=== PATIENT | male | born 1985 ===

== ENCOUNTER 2019-03-28 08:51 | Observation (INO) ==
[2019-03-28] MEDS ORDERED: Ondansetron 4 MG/2 ML VIAL IVP ONE ×2 (08:58→15:44)
[2019-03-28] MEDS ORDERED: 0.9 % Sodium Chloride 1,000 ML IVC ONE (08:58)
[2019-03-28] MEDS ORDERED: *HR* HYDROmorphone (PF) 1 MG/ML SYRINGE IVP ONE (08:58)
[2019-03-28] MEDS ORDERED: Ketorolac 30 MG/ML VIAL IVP ONE (08:58)
[2019-03-28 09:36] LABS: Basophils # 0.1 K/mcL (0.0-0.2); Basophils % 0.7 %; Eosinophils # 0.5 K/mcL (0.0-0.6); Hematocrit 42.2 % (37.5-50.1); Hemoglobin 14.5 g/dL (12.9-16.9); Immature Granulocytes % 0.7 % (0-4); Lymphocytes # 1.4 K/mcL (0.6-4.6); Lymphocytes % 11.1 %; Mean Corpuscular HGB Conc 34.4 g/dL (31.6-35.5); Mean Corpuscular Hemoglobin 28.6 pg (28.0-33.3); Mean Corpuscular Volume 83.2 fL (83.0-100.0); Mean Platelet Volume 9.1 fL (9.4-12.4); Monocytes # 1.6 K/mcL (0.0-1.3); Monocytes % 12.3 %; Neutrophils # 9.2 K/mcL (1.6-8.9); Platelet Count 294 K/mcL (140-400); Red Blood Count 5.07 M/mcL (4.19-5.50); Red Cell Distribution Width 12.6 % (11.5-14.5); Segmented Neutrophils % 71.2 %; White Blood Count 12.9 K/mcL (4.3-11.1)
[2019-03-28 11:08] LABS: Bilirubin,Urine Negative (Negative); Blood,Urine Trace (Negative); Clarity,Urine Clear (Clear); Color,Urine Yellow (Yellow); Glucose,Urine (UA) Normal (Normal); Ketones,Urine Negative (Negative); Leukocyte Esterase,Urine Negative (Negative); Nitrite,Urine Negative (Negative); PH,Urine 6.5 pH Units (5.0-8.0); Protein,Urine Negative (Neg-Trace); Specific Gravity,Urine 1.015 (1.010-1.025); Urobilinogen,Urine Normal (Normal)
[2019-03-28 11:09] LABS: BUN/Creatinine Ratio 5 (6-26); Blood Urea Nitrogen 6 mg/dL (6-20); Calcium 8.4 mg/dL (8.6-10.3); Carbon Dioxide 26 mEq/L (23-29); Chloride 107 mEq/L (98-107); Glucose 128 mg/dL (70-105); Osmolality,Calculated 287 (280-300); Potassium 3.6 mEq/L (3.5-5.1); Sodium 139 mEq/L (136-145); eGFR For African Americans > 60 (> 60); eGFR For Non-African Americans > 60 (> 60)
[2019-03-28] MEDS ORDERED: Ketorolac 15 MG/ML VIAL IVP PRN ×2 (11:11→16:29)
[2019-03-28] MEDS ORDERED: *HR* Promethazine 25 MG/ML VIAL IVP PRN ×3 (11:11→16:29)
[2019-03-28] MEDS ORDERED: Naloxone 0.4 MG/ML INJ IVP PRN ×2 (11:11→16:29)
[2019-03-28] MEDS ORDERED: cefTRIAXone 1,000 MG in Water for inj. (sterile) 10 ML IVP SCH (11:12)
[2019-03-28 11:13] LABS: Bacteria,Urine None Seen per hpf (None-Few); Hyaline Casts,Urine None Seen per lpf (None-Few); Squamous Epithelial Cell,Urine Moderate per lpf (None-Few)
[2019-03-28] MEDS ORDERED: Lidocaine -MPF 2% 2 ML VIAL ONE ×2 (14:29→15:20)
[2019-03-28] MEDS ORDERED: *HR* Propofol 200 MG/20 ML VIAL IVP ONE ×2 (14:29→14:35)
[2019-03-28] MEDS ORDERED: Ondansetron 4 MG/2 ML VIAL ONE ×2 (14:29→15:20)
[2019-03-28] MEDS ORDERED: *HR* FentaNYL (PF) 100 MCG/2 ML VIAL ONE (14:29)
[2019-03-28] MEDS ORDERED: Dexamethasone 4 MG/ML VIAL ONE (14:32)
[2019-03-28] MEDS ORDERED: *HR* Midazolam HCl 2 MG/2 ML VIAL ONE (14:50)
[2019-03-28] MEDS ORDERED: *HR* OxyCODONE Immed Rel 5 MG TABLET PO PRN (15:44)
[2019-03-28] MEDS: *HR* HYDROmorphone (PF) 1 MG/ML SYRINGE IVP PRN ×2 (15:55→16:09)
[2019-03-28 18:11] VITALS: BP 120/69
== END 2019-03-28 18:45 | disposition home or self-care (01) ==
LOC: 3BNU 08:51 → EMEROOARM 08:51 → 3BNU 12:04
PROVIDERS: ADMIT Internal Medicine; ATTEND Internal Medicine